=== PATIENT | female | born 1995 | race Caucasian/White ===

== ENCOUNTER 2018-04-26 21:05 | Emergency (ER) | payer MEDICAID ==
[~2018-04-26] VITALS: Ht 167.6 cm; Wt 72.6 kg
--- NOTE | 2018-04-26 21:17 | NUR ---
Pt ambulates to ER with multiple complaints. Pt chief c/o dizziness and headache. Pt states she had 4 syncopal episodes today while at home. Pt also c/o nausea & shortness of breath. 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 Pt placed on monitor. 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 SA02 100% room air.
--- NOTE | 2018-04-26 21:28 | NUR ---
Dr. Noe LAMBERT MD at bedside to evaluate pt.
[2018-04-26] MEDS ORDERED: ONDANSETRON 4 MG/2 ML VIAL IV ONE ×2 (21:45→23:00)
[2018-04-26] MEDS ORDERED: IV NORMAL SALINE 1000 ML BAG IV ONE (21:45)
[2018-04-26] MEDS ORDERED: ONDANSETRON 4 MG/2 ML VIAL ONE ×2 (21:51→22:49)
[2018-04-26 22:00] LABS: BASOPHILS # (AUTO) 0.1 K/uL (0.0-8.0); BASOPHILS % (AUTO) 0.9 % (0.0-2.0); EOSINOPHILS % (AUTO) 0.4 % (0.0-7.0); HEMATOCRIT 42.4 % (31.2-41.9); LYMPHOCYTES # (AUTO) 1.7 K/uL (20.0-40.0); LYMPHOCYTES % (AUTO) 25.9 % (20.5-51.5); MEAN CORPUSCULAR HEMOGLOBIN 27.7 uug (24.7-32.8); MEAN CORPUSCULAR HGB CONC 33 g/dL (32.3-35.6); MONOCYTES # (AUTO) 0.5 K/uL (2.0-10.0); MONOCYTES % (AUTO) 8.3 % (0.0-11.0); NEUTROPHILS # (AUTO) 4.2 K/uL (1.8-8.9); NEUTROPHILS % (AUTO) 64.5 % (38.5-71.5); PLATELET COUNT (AUTO) 272 K/uL (179-408); RED BLOOD CELL COUNT(AUTO) 5.05 MIL/uL (3.63-4.92); WHITE BLOOD COUNT (AUTO) 6.5 K/uL (3.8-11.8)
[2018-04-26 22:05] LABS: CREATININE 0.7 mg/dL (0.6-1.3); POTASSIUM 3.9 mmol/L (3.5-5.1)
[2018-04-26 22:10] LABS: BILIRUBIN,DIRECT 0.1 mg/dL (0.0-0.2); BILIRUBIN,TOTAL 0.3 mg/dL (0.2-1.0); TOTAL PROTEIN, SERUM 8.2 g/dL (6.4-8.2)
[2018-04-26] MEDS ORDERED: NORG1TAB19 PO (22:27)
[2018-04-26] MEDS ORDERED: ESCI10TA PO (22:27)
[2018-04-26] MEDS ORDERED: IVAB5TAB PO (22:27)
[2018-04-26] MEDS ORDERED: SWABABLE VALVE TRANSFER SET EA MC ONE (23:23)
[2018-04-26] MEDS ORDERED: IOHEXOL 350 100 ML INFUS..BTL ONE (23:23)
[2018-04-26] MEDS ORDERED: IV NORMAL SALINE 250 ML IV ONE (23:23)
--- NOTE | 2018-04-26 23:54 | NUR ---
Pt back from radiology dept. Pt placed back on monitor.
[2018-04-27] MEDS ORDERED: METOCLOPRAMIDE HCL 10 MG/2 ML VIAL ONE (01:58)
[2018-04-27] MEDS ORDERED: diphenhydrAMINE 50 MG/1 ML VIAL ONE (01:58)
[2018-04-27] MEDS ORDERED: IV NORMAL SALINE 1000 ML BAG IV ONE (02:00)
[2018-04-27] MEDS ORDERED: diphenhydrAMINE 50 MG/1 ML VIAL IV ONE (02:00)
[2018-04-27] MEDS ORDERED: METOCLOPRAMIDE HCL 10 MG/2 ML VIAL IV ONE (02:00)
--- NOTE | 2018-04-27 02:10 | NUR ---
Pt requested to have saline lock removed on Left AC. Placed saline lock on right hand IV 20 gauge.
--- NOTE | 2018-04-27 03:31 | NUR ---
Pt is resting in bed with eyes closed. Respirations even + unlabored. Boyfriend at bedside.
--- NOTE | 2018-04-27 05:34 | NUR ---
IV removed. Catheter intact and site benign. Pressure and 4x4 gauze applied to site. No bleeding noted.
--- NOTE | 2018-04-27 05:41 | NUR ---
Patient discharged to home in stable conditon. Written and verbal after care instructions given. Patient verbalizes understanding of instructions. Pt left ER with boyfriend who will drive home. All belongings with pt. VSS. NAD noted.
[2018-04-27 05:42] VITALS: BP 111/71
== END 2018-04-27 05:42 | disposition home or self-care (01) ==
LOC: ER 21:07
DX: R55 Syncope and collapse (principal); I49.8 Other specified cardiac arrhythmias; J45.909 Unspecified asthma, uncomplicated; F12.10 Cannabis abuse, uncomplicated; Z88.1 Allergy status to other antibiotic agents; Z88.8 Allergy status to other drugs, medicaments and biological substances; Z79.899 Other long term (current) drug therapy; Z90.49 Acquired absence of other specified parts of digestive tract
CPT/HCPCS: 36415; 70450; 71045; 71275; 80048; 80076; 84443; 84484; 84702; 85025; 85379; 85730; 93005; 96361; 96374 ×2; 96375; 96376; 99284; J1200; J2405 ×2; J2765; Q9967; 70030-TC; A4663; J7030; J7050